=== PATIENT | male | born 1975 | race Caucasian/White ===

== ENCOUNTER 2018-12-26 22:19 | Emergency (ER) | payer OTHER ==
[2018-12-26 22:30] VITALS: RESP 18
--- NOTE | 2018-12-26 22:50 | XR ---
EXAMINATION TYPE: XR chest 2V DATE OF EXAM: 12/26/2018 COMPARISON: NONE HISTORY: Cough TECHNIQUE: Frontal and lateral views of the chest are obtained. FINDINGS: Heart and mediastinum are normal. Lungs are clear of infiltrate. There is a linear density at the right cardiac border in the right middle lobe. Bony thorax is intact. There is no pleural effusion. IMPRESSION: Small area of right middle lobe linear atelectasis.
[2018-12-26] MEDS ORDERED: AZITHROMYCIN 500 MG TAB PO STA (22:53)
[2018-12-26] MEDS ORDERED: SODIUM CHLORIDE 0.9% 1,000 ML IV STA (22:54)
[2018-12-26] MEDS ORDERED: ONDANSETRON 4 MG/2 ML VIAL IVP STA (22:54)
[2018-12-26] MEDS ORDERED: IPRATROPIUM-ALBUTEROL 3 ML NEB INHALATION STA (22:56)
[2018-12-26 23:54] LABS: Appearance,Urine Clear (Clear); Basophils # (A) 0.1 k/uL (0-0.2); Basophils % (A) 1 %; Bilirubin,Urine Negative (Negative); Blood,Urine Negative (Negative); Color,Urine Light Yellow; Eosinophils # (A) 0.3 k/uL (0-0.7); Eosinophils % (A) 3 %; Glucose,Urine (UA) 4+ (Negative); HCT 42.3 % (39.0-53.0); HGB 14.4 gm/dL (13.0-17.5); Ketones,Urine Negative (Negative); Leukocyte Esterase,Urine Negative (Negative); Lymphocytes # (A) 0.9 k/uL (1.0-4.8); Lymphocytes % (A) 12 %; MCH 31.2 pg (25.0-35.0); MCHC 34.1 g/dL (31.0-37.0); MCV 91.6 fL (80.0-100.0); Monocytes # (A) 0.5 k/uL (0-1.0); Monocytes % (A) 7 %; Neutrophils # (A) 5.7 k/uL (1.3-7.7); Neutrophils % (A) 76 %; Nitrite,Urine Negative (Negative); PH, Urine 6.5 (5.0-8.0); Platelet Count 206 k/uL (150-450); Protein,Urine Negative (Negative); RBC 4.62 m/uL (4.30-5.90); RDW 13.5 % (11.5-15.5); Specific Gravity,Urine 1.032 (1.001-1.035); Urobilinogen,Urine <2.0 mg/dL (<2.0); WBC 7.5 k/uL (3.8-10.6)
[2018-12-27 00:03] LABS: ALT 119 U/L (21-72); AST 61 U/L (17-59); African American GFR (CKD) >90 (>60 ml/min/1.73 sqM); Albumin 3.9 g/dL (3.5-5.0); Alkaline Phosphatase 68 U/L (38-126); Anion Gap 7 mmol/L; Blood Urea Nitrogen 20 mg/dL (9-20); Calcium 9.2 mg/dL (8.4-10.2); Carbon Dioxide 27 mmol/L (22-30); Chloride 101 mmol/L (98-107); Potassium 4.7 mmol/L (3.5-5.1); Sodium 135 mmol/L (137-145); Total Bilirubin 0.7 mg/dL (0.2-1.3); Total Protein 6.6 g/dL (6.3-8.2)
[2018-12-27] MEDS ORDERED: INSULIN ASPART (NovoLOG) 100 UNIT/ML VIAL SQ ONE (00:10)
[2018-12-27 00:11] LABS: Glucose 566 mg/dL (74-99)
[2018-12-27 00:16] VITALS: PULSE 103
--- NOTE | 2018-12-27 00:24 | ED ---
General Adult HPI <Bartolo Blake - Last Filed: 12/27/18 01:36> - General Source: patient, RN notes reviewed, old records reviewed Mode of arrival: ambulatory <Shane Eldridge - Last Filed: 12/27/18 02:07> - General Chief complaint: Upper Respiratory Infection Stated complaint: Cough, Diabetic Time Seen by Provider: 12/26/18 22:31 - History of Present Illness Initial comments: 43-year-old male patient presents to ED for chief complaint approximate 4 days of cough, congestion, sinus drainage. Patient reports that he also has a hoarse voice. Denies sore throat. Reports that he has felt somewhat hot and cold at home. Denies any chest pain shortness of breath nausea vomiting or diarrhea. 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 Systemic: Pt denies fatigue, rash. Pt denies weakness, night sweats, weight loss. Neuro: Pt denies headache, visual disturbances, syncope or pre-syncope. HEENT: Pt denies ocular discharge or irritation, otalgia, rhinorrhea, pharyngitis or notable lymphadenopathy. Cardiopulmonary: Pt denies chest pain, SOB, heart palpitations, dyspnea on exertion. Abdominal/GI: Pt denies abdominal pain, n/v/d. : Pt denies dysuria, burning w/ urination, frequency/urgency. Denies new onset urinary or bowel incontinence. MSK: Pt denies myalgia, loss of strength or function in extremities. Neuro: Pt denies new onset weakness, paresthesias. (Shane Eldridge) - Related Data Home Medications Medication Instructions Recorded Confirmed ALPRAZolam [Xanax] 1 mg PO TID 12/26/18 12/26/18 Dextroamphetamine/Amphetamine 30 mg PO TID 12/26/18 12/26/18 [Adderall] Gabapentin [Neurontin] 800 mg PO QID 12/26/18 12/26/18 Insulin Glargine [Lantus] 40 unit SQ HS 12/26/18 12/26/18 buPROPion HCL [Wellbutrin SR] 150 mg PO BID 12/26/18 12/26/18 traZODone HCL 100 mg PO HS 12/26/18 12/26/18 Previous Rx's Medication Instructions Recorded Albuterol Inhaler [Ventolin Hfa 1 - 2 puff INHALATION Q4-6H PRN #1 12/27/18 Inhaler] inhaler Azithromycin [Zithromax Z-pack] 0 mg PO DIRECTED #6 tab 12/27/18 predniSONE 50 mg PO DAILY #5 tab 12/27/18 Allergies Allergy/AdvReac Type Severity Reaction Status Date / Time No Known Allergies Allergy Verified 12/26/18 22:20 Review of Systems ROS Other: All systems not noted in ROS Statement are negative. <Bartolo Blake - Last Filed: 12/27/18 01:36> ROS Other: All systems not noted in ROS Statement are negative. <Shane Eldridge - Last Filed: 12/27/18 02:07> ROS Statement: Those systems with pertinent positive or pertinent negative responses have been documented in the HPI. Past Medical History Past Medical History: Diabetes Mellitus Additional Past Medical History / Comment(s): chronic neck pain History of Any Multi-Drug Resistant Organisms: None Reported Additional Past Surgical History / Comment(s): r leg surgery, right elbow broke- needs surgery Past Psychological History: ADD/ADHD, Bipolar, Depression, Panic Disorder Smoking Status: Current every day smoker Past Alcohol Use History: None Reported Past Drug Use History: None Reported <Shane Eldridge - Last Filed: 12/27/18 02:07> General Exam <Shane Eldridge - Last Filed: 12/27/18 02:07> - General Exam Comments Initial Comments: Constitutional: NAD, AOX3, Pt has pleasant affect. Mild hoarse voice noted. HEENT: NC/AT, trachea midline, neck supple, no lymphadenopathy. Posterior pharynx non erythematous, without exudates. External ears appear normal, without discharge. Mucous membranes moist. Eyes PERRLA, EOM intact. There is no scleral icterus. No pallor noted. Cardiopulmonary: RRR, no murmurs, rubs or gallops, no JVD noted. Wheeze noted in anterior lung bai, resulted in breathing treatment.. No peripheral edema. Abdominal exam: Abdomen soft and non-distended. Abdomen non-tender to palpation in all 4 quadrants. Bowel sounds active in LLQ. No hepatosplenomegaly. No ecchymosis Neuro: CN II-XII grossly intact. No nuchal rigidity. No raccon eyes, no rebolledo sign, no hemotympanum. No cervical spinal tenderness. MSK: No posterior calf tenderness bilaterally, homans sign negative bilaterally. Posterior tibialis and radial pulse +2 bilaterally. Sensation intact in upper and lower extremities. Full active ROM in upper and lower extremities, 5/5 stre gnth. (Shane Eldridge) Course Vital Signs 12/26/18 12/26/18 12/26/18 22:23 23:09 23:13 Temperature 99.5 F Pulse Rate 120 H 112 H 116 H Respiratory 18 Rate Blood Pressure 141/82 O2 Sat by Pulse 94 L Oximetry 12/27/18 12/27/18 00:15 01:59 Temperature 98.3 F 98 F Pulse Rate 103 H 103 H Respiratory 18 18 Rate Blood Pressure 115/82 117/84 O2 Sat by Pulse 92 L 93 L Oximetry Medical Decision Making - Lab Data Result diagrams: 12/26/18 23:30 12/26/18 23:30 <Bartolo Blake - Last Filed: 12/27/18 01:36> - Lab Data Result diagrams: 12/26/18 23:30 12/26/18 23:30 <Shane Eldridge - Last Filed: 12/27/18 02:07> - Medical Decision Making 43-year-old male patient presents to ED for chief complaint approximate 4 days of cough, congestion, sinus drainage. Patient reports that he also has a hoarse voice. Denies sore throat. Reports that he has felt somewhat hot and cold at home. Denies any chest pain shortness of breath nausea vomiting or diarrhea. 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 Physical exam displayed mild hoarse voice, mile wheezing, resolved after breathing treatment. Posterior pharynx non-erythematous. Chest x-ray displayed middle lobe atelectasis. Laboratory investigations are non-impressive with exception of hyperglycemia. Patient was administered a fluid bolus, insulin. Patient be initiated on azithromycin, steroids, breathing treatments. We'll have close outpatient follow-up and return to ER condition worsens. Case was signed out to attending physician Dr. Mcdowell pending repeat glucose. (Shane Eldridge) - Lab Data Lab Results 12/26/18 12/26/18 12/26/18 Range/Units 23:30 23:30 23:30 WBC 7.5 (3.8-10.6) k/uL RBC 4.62 (4.30-5.90) m/uL Hgb 14.4 (13.0-17.5) gm/dL Hct 42.3 (39.0-53.0) % MCV 91.6 (80.0-100.0) fL MCH 31.2 (25.0-35.0) pg MCHC 34.1 (31.0-37.0) g/dL RDW 13.5 (11.5-15.5) % Plt Count 206 (150-450) k/uL Neutrophils % 76 % Lymphocytes % 12 % Monocytes % 7 % Eosinophils % 3 % Basophils % 1 % Neutrophils # 5.7 (1.3-7.7) k/uL Lymphocytes # 0.9 L (1.0-4.8) k/uL Monocytes # 0.5 (0-1.0) k/uL Eosinophils # 0.3 (0-0.7) k/uL Basophils # 0.1 (0-0.2) k/uL Sodium 135 L (137-145) mmol/L Potassium 4.7 (3.5-5.1) mmol/L Chloride 101 (98-107) mmol/L Carbon Dioxide 27 (22-30) mmol/L Anion Gap 7 mmol/L BUN 20 (9-20) mg/dL Creatinine 0.63 L (0.66-1.25) mg/dL Est GFR (CKD-EPI)AfAm >90 (>60 ml/min/1.73 sqM) Est GFR (CKD-EPI)NonAf >90 (>60 ml/min/1.73 sqM) Glucose 566 H* (74-99) mg/dL POC Glucose (mg/dL) (75-99) mg/dL POC Glu Core Shaper Sides ID Plasma Lactic Acid Nick 1.0 (0.7-2.0) mmol/L Calcium 9.2 (8.4-10.2) mg/dL Total Bilirubin 0.7 (0.2-1.3) mg/dL AST 61 H (17-59) U/L ALT 119 H (21-72) U/L Alkaline Phosphatase 68 (38-126) U/L Total Protein 6.6 (6.3-8.2) g/dL Albumin 3.9 (3.5-5.0) g/dL Urine Color Urine Appearance (Clear) Urine pH (5.0-8.0) Ur Specific [place] (1.001-1.035) Urine Protein (Negative) Urine Glucose (UA) (Negative) Urine Ketones (Negative) Urine Blood (Negative) Urine Nitrite (Negative) Urine Bilirubin (Negative) Urine Urobilinogen (<2.0) mg/dL Ur Leukocyte Esterase (Negative) Acetone, Qual Negative (Negative) 12/26/18 12/27/18 Range/Units 23:30 01:20 WBC (3.8-10.6) k/uL RBC (4.30-5.90) m/uL Hgb (13.0-17.5) gm/dL Hct (39.0-53.0) % MCV (80.0-100.0) fL MCH (25.0-35.0) pg MCHC (31.0-37.0) g/dL RDW (11.5-15.5) % Plt Count (150-450) k/uL Neutrophils % % Lymphocytes % % Monocytes % % Eosinophils % % Basophils % % Neutrophils # (1.3-7.7) k/uL Lymphocytes # (1.0-4.8) k/uL Monocytes # (0-1.0) k/uL Eosinophils # (0-0.7) k/uL Basophils # (0-0.2) k/uL Sodium (137-145) mmol/L Potassium (3.5-5.1) mmol/L Chloride (98-107) mmol/L Carbon Dioxide (22-30) mmol/L Anion Gap mmol/L BUN (9-20) mg/dL Creatinine (0.66-1.25) mg/dL Est GFR (CKD-EPI)AfAm (>60 ml/min/1.73 sqM) Est GFR (CKD-EPI)NonAf (>60 ml/min/1.73 sqM) Glucose (74-99) mg/dL POC Glucose (mg/dL) 339 H (75-99) mg/dL POC Glu Core Shaper Sides ID Debbie Sofia Plasma Lactic Acid Nick (0.7-2.0) mmol/L Calcium (8.4-10.2) mg/dL Total Bilirubin (0.2-1.3) mg/dL AST (17-59) U/L ALT (21-72) U/L Alkaline Phosphatase (38-126) U/L Total Protein (6.3-8.2) g/dL Albumin (3.5-5.0) g/dL Urine Color Light Yellow Urine Appearance Clear (Clear) Urine pH 6.5 (5.0-8.0) Ur Specific [place] 1.032 (1.001-1.035) Urine Protein Negative (Negative) Urine Glucose (UA) 4+ H (Negative) Urine Ketones Negative (Negative) Urine Blood Negative (Negative) Urine Nitrite Negative (Negative) Urine Bilirubin Negative (Negative) Urine Urobilinogen <2.0 (<2.0) mg/dL Ur Leukocyte Esterase Negative (Negative) Acetone, Qual (Negative) Disposition <Bartolo Blake - Last Filed: 12/27/18 01:36> Is patient prescribed a controlled substance at d/c from ED?: No <Shane Eldridge - Last Filed: 12/27/18 02:07> Clinical Impression: Cough, Bronchitis Disposition: HOME SELF-CARE Condition: Stable Instructions (If sedation given, give patient instructions): Upper Respiratory Infection (ED), Acute Bronchitis (ED) Additional Instructions: Patient to adhere to previously discussed treatment plan and will take medication(s) as directed. Patient to follow up with PCP in 1-2 days. Patient to return to ED if symptoms do not improve. Return to ER if condition worsens in any way. Prescriptions: predniSONE 50 mg PO DAILY #5 tab Albuterol Inhaler [Ventolin Hfa Inhaler] 1 - 2 puff INHALATION Q4-6H PRN #1 inhaler PRN Reason: Cough Azithromycin [Zithromax Z-pack] 0 mg PO DIRECTED #6 tab Referrals: None,Stated [Primary Care Provider] - 1-2 days
[2018-12-27 01:21] LABS: Glucose,Whole Blood 339 mg/dL (75-99)
[2018-12-27 01:59] VITALS: BP 117/84; TEMP 98
== END 2018-12-27 02:00 | disposition home or self-care (01) ==
LOC: EC 22:19
DX: J40 Bronchitis, not specified as acute or chronic (principal); J98.11 Atelectasis; E11.65 Type 2 diabetes mellitus with hyperglycemia; R49.8 Other voice and resonance disorders; G89.29 Other chronic pain; F90.9 Attention-deficit hyperactivity disorder, unspecified type; F31.9 Bipolar disorder, unspecified; F41.0 Panic disorder [episodic paroxysmal anxiety]; F17.200 Nicotine dependence, unspecified, uncomplicated; Z79.4 Long term (current) use of insulin; Z79.899 Other long term (current) drug therapy
CPT/HCPCS: 36415 ×2; 94640; 80053; 82009; 83605; 85025; 81003; 71046; 99284; 96374; 96361 ×2; J2405